=== PATIENT | female | born 1950 | race Caucasian/White ===

== ENCOUNTER 2017-02-19 17:08 | Emergency (ER) | payer MEDICARE, OTHER ==
[~2017-02-19] VITALS: Ht 167.6 cm; Wt 127.0 kg
[~2017-02-19 17:08] MED LIST: CRESTOR40 MG PO; CRESTOR5 MG PO; WARF-78 PO; WARF4TAB7 PO
[2017-02-19] MEDS ORDERED: fentaNYL PF 100 MCG/2 ML VIAL IV ONE (17:45)
[2017-02-19] MEDS ORDERED: ONDANSETRON PF 4 MG/2 ML VIAL. IV ONE (17:45)
--- NOTE | 2017-02-19 17:46 | ED.ADGEN ---
Past History Past Medical History: High Cholesterol, Other (BABATUNDE CAVAZOS DO) Past Surgical History: Hysterectomy, Other (BABATUNDE CAVAZOS DO) Alcohol Use: None Drug Use: None (BABATUNDE CAVAZOS DO) Adult General Chief Complaint Chief Complaint Right flank pain (BABATUNDE CAVAZOS DO) HPI HPI Patient is a 66-year-old female presents with right sided flank pain starting 4 hours prior to ED arrival. Pain is sharp, rated moderate to severe, nonmigratory , nonradiating and is rated moderate to severe. Pain is not approved or made worse with position change, palpation or movement. Patient denies nausea, vomiting, constipation, diarrhea, urinary frequency urgency or hematuria. No fever chills or sweats. No other acute symptoms or complaints. Prior surgical history includes lap band history 2007, colonoscopy in 2016 which showed polyps , and remote hysterectomy. (BABATUNDE CAVAZOS DO) Review of Systems Review of Systems ROS as per HPI. (BABATUNDE CAVAZOS DO) Current Medications Current Medications Current Medications Medications (Trade) Dose Ordered Sig/Augustin Start Time Stop Time Status Last Admin Dose Admin Ceftriaxone Sodium 1 gm/ Sodium Chloride 50 ml @ 100 mls/hr 1X ONCE 02/19/17 21:00 02/19/17 21:29 DC 02/19/17 21:00 100 MLS/HR Ceftriaxone Sodium (Rocephin) 1 gm STK-MED ONCE 02/19/17 21:08 02/19/17 21:09 DC Fentanyl Citrate (Fentanyl 2ml Vial) 50 mcg PRN Q15MIN PRN 02/19/17 19:15 02/19/17 22:19 DC 02/19/17 21:02 50 MCG Ketorolac Tromethamine (Toradol) 10 mg 1X ONCE 02/19/17 21:45 02/19/17 21:46 DC 02/19/17 22:08 10 MG Ondansetron HCl (Zofran) 4 mg 1X ONCE 02/19/17 17:45 02/19/17 17:46 DC 02/19/17 17:43 4 MG Oxycodone/ Acetaminophen (Percocet 5/325) 1 tab 1X ONCE 02/19/17 21:45 02/19/17 21:46 DC 02/19/17 20:08 1 TAB Sodium Chloride 50 ml @ As Directed STK-MED ONCE 02/19/17 21:08 02/19/17 21:09 DC Tamsulosin HCl (Flomax) 0.4 mg 1X ONCE 02/19/17 21:45 02/19/17 21:46 DC 02/19/17 22:08 0.4 MG ([facility]) Allergies Allergies Allergies Coded Allergies Type Severity Reaction Last Updated Verified Sulfa (Sulfonamide Antibiotics) Allergy Unknown 03/26/15 Yes Tetanus Vaccines & Toxoid Allergy Unknown 03/26/15 Yes latex Allergy Unknown 03/26/15 Yes (ROBBIE,SALAZAR Wanda ) Physical Exam Physical Exam Constitutional: Well developed, well nourished. HENT: Normocephalic, atraumatic, bilateral external ears normal, oropharynx moist, no oral exudates, nose normal. Eyes: PERRLA, EOMI, conjunctiva normal. Neck: Normal range of motion, no tenderness. Cardiovascular:Heart rate regular rhythm. Lungs & Thorax: Bilateral breath sounds clear to auscultation. Abdomen: Bowel sounds normal, soft, no tenderness, obesity compromising evaluation. Skin: Warm, dry, no erythema. Back: No tenderness, no CVA tenderness. Extremities: No tenderness. Neurologic: Alert and oriented X 3, normal motor function, normal sensory function, no focal deficits noted. Psychologic: Affect normal, judgement normal, mood normal. (BABATUNDE CAVAZOS DO) Current Patient Data Vital Signs Vital Signs Date Time Temp Pulse Resp B/P (MAP) Pulse Ox O2 Delivery O2 Flow Rate FiO2 02/19/17 21:02 20 98 Room Air 02/19/17 20:15 98.3 79 153/73 (99) ([facility]AR [facility]VALOS [facility]) Lab Results Laboratory Tests Test 02/19/17 17:35 02/19/17 18:40 White Blood Count 9.5 x10^3/uL (4.0-11.0) Red Blood Count 4.83 x10^6/uL (3.50-5.40) Hemoglobin 12.0 g/dL (12.0-15.5) Hematocrit 36.8 % (36.0-47.0) Mean Corpuscular Volume 76 fL (79-100) L Mean Corpuscular Hemoglobin 25 pg (25-35) Mean Corpuscular Hemoglobin Concent 33 g/dL (31-37) Red Cell Distribution Width 16.1 % (11.5-14.5) H Platelet Count 233 x10^3/uL (140-400) Neutrophils (%) (Auto) 83 % (31-73) H Lymphocytes (%) (Auto) 12 % (24-48) L Monocytes (%) (Auto) 3 % (0-9) Eosinophils (%) (Auto) 1 % (0-3) Basophils (%) (Auto) 1 % (0-3) Neutrophils # (Auto) 7.9 x10^3uL (1.8-7.7) H Lymphocytes # (Auto) 1.2 x10^3/uL (1.0-4.8) Monocytes # (Auto) 0.3 x10^3/uL (0.0-1.1) Eosinophils # (Auto) 0.1 x10^3/uL (0.0-0.7) Basophils # (Auto) 0.1 x10^3/uL (0.0-0.2) Sodium Level 142 mmol/L (136-145) Potassium Level 4.2 mmol/L (3.5-5.1) Chloride Level 106 mmol/L (98-107) Carbon Dioxide Level 26 mmol/L (21-32) Anion Gap 10 (6-14) Blood Urea Nitrogen 11 mg/dL (7-20) Creatinine 1.0 mg/dL (0.6-1.0) Estimated GFR (Cockcroft-Gault) 55.6 BUN/Creatinine Ratio 11 (6-20) Glucose Level 118 mg/dL (70-99) H Calcium Level 8.8 mg/dL (8.5-10.1) Total Bilirubin 0.5 mg/dL (0.2-1.0) Aspartate Amino Transferase (AST) 27 U/L (15-37) Alanine Aminotransferase (ALT) 19 U/L (14-59) Alkaline Phosphatase 167 U/L (46-116) H Total Protein 8.1 g/dL (6.4-8.2) Albumin 3.6 g/dL (3.4-5.0) Albumin/Globulin Ratio 0.8 (1.0-1.7) L Lipase 90 U/L (73-393) Urine Collection Type Unknown Urine Color Yellow Urine Clarity Hazy Urine pH 5.5 Urine Specific [place] 1.025 Urine Protein 30 mg/dl (NEG-TRACE) Urine Glucose (UA) Neg mg/dL (NEG) Urine Ketones (Stick) 15 mg/dL (NEG) Urine Blood Large (NEG) Urine Nitrite Pos (NEG) Urine Bilirubin Neg (NEG) Urine Urobilinogen Dipstick 1 mg/dL (0.2 mg/dL) Urine Leukocyte Esterase Neg (NEG) Urine RBC 11-20 /HPF (0-2) Urine WBC 1-4 /HPF (0-4) Urine Squamous Epithelial Cells Few /LPF Urine Bacteria Many /HPF (0-FEW) Urine Yeast Present /HPF (SALAZAR AVALOS DO) EKG EKG [] (BABATUNDE CAVAZOS DO) Radiology/Procedures Radiology/Procedures [] (BABATUNDE CAVAZOS DO) Course & Med Decision Making Course & Med Decision Making Pertinent Labs and Imaging studies reviewed. (See chart for details) [R flank pain, work up in progress. PCP follow up. ] (BABATUNDE CAVAZOS DO) Course & Med Decision Making I assumed care of this patient at time of sign out from Dr. Cavazos. Patient is resting more comfortably after receiving analgesia and antiemetics in the ED. We did initiate IV fluids as well, as patient was unable to pass urine, states she has been able to keep anything down since this symptoms began around 1:[address] of the abdomen and pelvis obtained without contrast, after urine was obtained and revealed a nitrate positive urinary tract infection with wbc's and many bacteria, yeast was also noted. Patient complaining of pain in the right flank and right lower quadrant, no significant tenderness on examination. CT abdomen and pelvis reveals a 4 mm obstructing stone with mild hydronephrosis at the right UVJ. Ceftriaxone initiated in the ED. patient has not experienced any nausea or vomiting, is resting comfortably at this time. I spoke with Dr. Naranjo of urology at the [facility], patient as stated has stable vital signs, no leukocytosis, no fever, and is tolerating orals without issue. He recommends management with outpatient , employing oral antibiotics and analgesia, and follow-up in his office. If patient spikes fevers, is unable tolerate oral medications, other complications were to arise, he recommends the patient proceed to [facility] emergency department for additional evaluation. I did discuss this with patient and at bedside. Patient is tolerating oral Flomax without issue, has received additional Toradol in the ED, and oral Percocet. She is tolerating medications without issue. We did discuss at length concerning symptoms that would prompt return to the emergency department for admission, at this time patient and are comfortable and agreeable with plan for a trial of outpatient management. Patient remained stable on the monitor, afebrile in the ED, ambulating without difficulty upon exiting the emergency department with her with plan as above, was given phone number to establish follow-up with urology. (SALAZAR AVALOS DO) Final Impression Final Impression [1. ] Problems: (BABATUNDE CAVAZOS DO) Dragon Disclaimer Dragon Disclaimer This electronic medical record was generated, in whole or in part, using a voice recognition dictation system. (BABATUNDE CAVAZOS DO) Departure: Impression: Primary Impression: Renal calculus, right Additional Impression: Urinary tract infection Disposition: 01 HOME, SELF-CARE Condition: IMPROVED Scripts Fluconazole (DIFLUCAN) 150 Mg Tablet 1 TAB PO ONCE, #1 TAB 1 Refill Prov: SALAZAR AVALOS DO 02/19/17 Ciprofloxacin Hcl (CIPRO) 500 Mg Tablet 1 TAB PO BID, #20 TAB Prov: SALAZAR AVALOS DO 02/19/17 Naproxen (NAPROXEN) 250 Mg Tablet 250 MG PO PRN BID Y for PAIN, #10 TAB Prov: SALAZAR AVALOS DO 02/19/17 Oxycodone Hcl/Acetaminophen (PERCOCET 5-325 MG TABLET) 1 Each Tablet 1 TAB PO QID Y for PAIN, #14 TAB Prov: SALAZAR AVALOS DO 02/19/17 Ondansetron Hcl (ZOFRAN) 4 Mg Tablet 4 MG PO PRN Q8HRS Y for NAUSEA, #12 Prov: SALAZAR AVALOS DO 02/19/17 Tamsulosin Hcl (FLOMAX) 0.4 Mg Cap.er.24h 0.4 MG PO DAILY, #4 CAP.SR Prov: SALAZAR AVALOS DO 02/19/17 BABATUNDE CAVAZOS DO Feb 19, 2017 17:45 SALAZAR AVALOS DO Feb 19, 2017 21:20
[2017-02-19 17:53] LABS: BASO # 0.1 x10^3/uL (0.0-0.2); BASO % 1 % (0-3); EOS # 0.1 x10^3/uL (0.0-0.7); EOS % 1 % (0-3); HEMATOCRIT 36.8 % (36.0-47.0); LYMPH # 1.2 x10^3/uL (1.0-4.8); LYMPH % 12 % (24-48); MEAN CORPUSCULAR HEMOGLOBIN 25 pg (25-35); MEAN CORPUSCULAR HGB CONC 33 g/dL (31-37); MEAN CORPUSCULAR VOLUME 76 fL (79-100); MONO # 0.3 x10^3/uL (0.0-1.1); MONO % 3 % (0-9); NEUT # 7.9 x10^3uL (1.8-7.7); NEUT % 83 % (31-73); PLATELET COUNT 233 x10^3/uL (140-400); RED BLOOD COUNT 4.83 x10^6/uL (3.50-5.40); RED CELL DISTRIBUTION WIDTH 16.1 % (11.5-14.5); WHITE BLOOD COUNT 9.5 x10^3/uL (4.0-11.0)
[2017-02-19 18:02] LABS: ALBUMIN 3.6 g/dL (3.4-5.0); ALBUMIN/GLOBULIN RATIO 0.8 (1.0-1.7); CALCIUM 8.8 mg/dL (8.5-10.1); GFR 55.6; TOTAL BILIRUBIN 0.5 mg/dL (0.2-1.0); TOTAL PROTEIN 8.1 g/dL (6.4-8.2)
[2017-02-19 18:03] LABS: POTASSIUM 4.2 mmol/L (3.5-5.1)
[2017-02-19] MEDS ORDERED: IV NORMAL SALINE 1,000ML 1,000 ML IV ONE (18:30)
[2017-02-19] MEDS ORDERED: fentaNYL PF 100 MCG/2 ML VIAL IV PRN (19:15)
[2017-02-19 19:17] LABS: CLARITY,URINE HAZY; COLOR,URINE YELLOW
[2017-02-19 19:18] LABS: BILIRUBIN,URINE NEG (NEG); GLUCOSE,URINE NEG (NEG); NITRITE,URINE POS (NEG); SQUAMOUS EPITHELIAL CELL,UR FEW /LPF; UROBILINOGEN,URINE 1 mg/dL (0.2 mg/dL)
[2017-02-19 19:19] LABS: BACTERIA,URINE MANY /HPF (0-FEW); YEAST,URINE PRESENT /HPF
[2017-02-19 20:15] VITALS: BP 153/73
--- NOTE | 2017-02-19 20:32 | RAD ---
PQRS STATEMENT: One or more of the following in the visualized dose reduction techniques were utilized for this study: 1. Automatic exposure control, 2. Adjustment of the mA and/or kV according to patient size, 3. Use of iterative reconstruction technique CT ABDOMEN/PELVIS Indication:rlq/rt hip/rt flank pain, hx hysterectomy Technique: Multiple contiguous axial images were obtained through the abdomen and pelvis. Coronal and sagittal reformations were created. Findings: There is an obstructive 4 mm calculus at the ureteropelvic junction on the right causing mild right hydronephrosis. There is also a nonobstructive calculus in the inferior pole measuring 6 mm. The left kidney demonstrates nonobstructing 2 mm calculus. There is also a cortical cyst on the left measures 3.8 cm and some smaller additional cortical cysts. The urinary bladder is within normal limits. The heart size is normal. The lung bases are clear.Evaluation of the abdominal viscera is limited in the absence of IV contrast. The gastric lap band is in place. There is a small hiatal hernia. The liver and spleen are normal in size. The gallbladder is nondistended. The pancreas, and adrenal glands are within normal limits. There is no abdominopelvic ascites. Abdominal aorta is normal in caliber. .The bowel loops are normal in caliber. The appendix is normal.No destructive osseus lesions are identified. There is dystrophic calcifications of the prostate. Impression: 4 mm obstructive calculus at the right ureteropelvic junction causing mild right hydronephrosis. Electronically signed by: Jm Ervin MD (02/19/2017 8:28 PM) [facility]
[2017-02-19] MEDS ORDERED: IV NORMAL SALINE 50ML 50 ML ONE (21:08)
[2017-02-19] MEDS ORDERED: cefTRIAXone SODIUM 1 GM VIAL IV ONE (21:08)
[2017-02-19] MEDS ORDERED: TAMSULOSIN 0.4 MG CAP.ER.24H. PO ONE (21:45)
[2017-02-19] MEDS ORDERED: oxyCODONE/APAP 5/325 1 TAB TABLET PO ONE (21:45)
[2017-02-19] MEDS ORDERED: KETOROLAC 15 MG/ML VIAL. IV ONE (21:45)
[2017-02-19] MEDS ORDERED: ONDA4TAB7 PO (22:02)
[2017-02-19] MEDS ORDERED: NAPR250T2 PO (22:02)
[2017-02-19] MEDS ORDERED: TAMS0.4C97 PO (22:02)
[2017-02-19] MEDS ORDERED: OXYC-323 PO (22:02)
[2017-02-19] MEDS ORDERED: CIPR500T94 PO (22:02)
[2017-02-19] MEDS ORDERED: FLUC150T PO (22:08)
== END 2017-02-19 22:17 | disposition home or self-care (01) ==
LOC: ER 17:08
DX: N20.0 Calculus of kidney (principal); N39.0 Urinary tract infection, site not specified; E78.00 Pure hypercholesterolemia, unspecified; Z90.710 Acquired absence of both cervix and uterus; Z88.2 Allergy status to sulfonamides; Z88.7 Allergy status to serum and vaccine; Z91.040 Latex allergy status
CPT/HCPCS: 36415; 74176; 80053; 81001; 83690; 85027; 87086; 96361; 96365; 96375; 96376; 99285; J0696; J1885; J2405; J3010; J7030

== ENCOUNTER → 2018-12-10 | Outpatient (CLI) | payer MEDICARE, OTHER ==
[~2018-12-10] MED LIST changes: +CIPR500T94 PO; +FLUC150T PO; +NAPR250T6 PO; +ONDA4TAB7 PO; +OXYC1TAB15 PO; +TAMS0.4C97 PO; +WARF4TAB64 PO; -WARF4TAB7 PO
== END | disposition home or self-care (01) ==
LOC: SPEC 12:33
PROVIDERS: ATTEND Family Medicine
DX: Z51.81 Encounter for therapeutic drug level monitoring (principal); J96.01 Acute respiratory failure with hypoxia; I26.99 Other pulmonary embolism without acute cor pulmonale; Z79.01 Long term (current) use of anticoagulants
CPT/HCPCS: 36415; 85610

== ENCOUNTER 2020-12-09 01:55 | Emergency (ER) | payer MEDICARE, OTHER ==
[~2020-12-09] VITALS: Ht 167.6 cm; Wt 100.0 kg
[~2020-12-09 01:55] MED LIST changes: +NAPR-699 PO; -NAPR250T6 PO; -WARF-78 PO; +WARF5TAB2 PO
[2020-12-09] MEDS ORDERED: KETOROLAC 15 MG/ML VIAL. IVP ONE (02:30)
[2020-12-09] MEDS ORDERED: IV NORMAL SALINE 1,000ML 1,000 ML IV ONE (02:30)
--- NOTE | 2020-12-09 02:32 | PHYS DOC ---
Past History Past Medical History: Constipation, High Cholesterol, Hypertension, Other Additional Past Medical Histor: PE Past Surgical History: Hysterectomy, Other Additional Past Surgical Histo: LAP BAND, BLADDER, CARCINOMA Alcohol Use: None Drug Use: None Adult General Chief Complaint Chief Complaint: FLANK PAIN HPI HPI Patient is a 70-year-old female who presents with complaints of 2 to left lower lumbar pain that began on Friday and has progressively gotten worse. She presents today because she is in so much discomfort that she cannot sleep. She reports her pain is in her left lower lumbar/sciatic region and does not radiate. She reports noes issues with urination or defecation since symptoms began and has not noticed any blood in her urine. She does report previous total abdominal hysterectomy, multiple pulmonary emboli for which she is on warfarin for in the past, and hyperlipidemia. She reports no previous surgical management of her past kidney stones. Denies nausea vomiting and diarrhea denies bloody urine denies bloody stools denies reduced appetite/p.o. intake. Review of Systems Review of Systems Fourteen body systems of review of systems have been reviewed. See HPI for pertinent positives and negative responses, other ortiz all other systems are negative, non-pertinent or non-contributory Current Medications Current Medications Current Medications Medications (Trade) Dose Ordered Sig/Augustin Start Time Stop Time Status Last Admin Dose Admin Ketorolac Tromethamine (Toradol 15mg Vial) 15 mg 1X ONCE 12/09/20 02:30 12/09/20 02:31 UNV Sodium Chloride 1,000 ml @ 75 mls/hr 1X ONCE 12/09/20 02:30 12/09/20 15:49 UNV Allergies Allergies Allergies Coded Allergies Type Severity Reaction Last Updated Verified Sulfa (Sulfonamide Antibiotics) Allergy Unknown 03/26/15 Yes Tetanus Vaccines and Toxoid Allergy Unknown 03/26/15 Yes latex Allergy Unknown 03/26/15 Yes Physical Exam Physical Exam Constitutional: Well developed, well nourished, no acute distress, non-toxic appearance. HENT: Normocephalic, atraumatic, bilateral external ears normal, oropharynx moist, no oral exudates, nose normal. Eyes: PERRLA, EOMI, conjunctiva normal, no discharge. Neck: Normal range of motion, no tenderness, supple, no stridor. Cardiovascular: Heart rate regular, sinus rhythm, no murmurs rubs or gallops Lungs & Thorax: Bilateral breath sounds clear to auscultation Abdomen: Bowel sounds normal, soft, no tenderness, no masses, no pulsatile masses. Nonsurgical abdomen, no peritoneal signs Skin: Warm, dry, no erythema, no rash. Back: No tenderness, no CVA tenderness but pointing to "deep" areas on bilateral flanks. Extremities: No tenderness, no cyanosis, no clubbing, ROM intact, no edema. Neurologic: Alert and oriented X 3, grossly normal motor & sensory function, no focal deficits noted. Psychologic: Affect normal, judgement normal, mood normal. Current Patient Data Vital Signs Vital Signs Date Time Temp Pulse Resp B/P (MAP) Pulse Ox O2 Delivery O2 Flow Rate FiO2 12/09/20 02:22 98.0 86 18 160/92 (114) 93 Room Air Lab Results Current Medications Medications (Trade) Dose Ordered Sig/Augustin Route PRN Reason Start Time Stop Time Status Last Admin Dose Admin Sodium Chloride 1,000 ml @ 75 mls/hr 1X ONCE IV 12/09/20 02:30 12/09/20 05:19 DC 12/09/20 02:46 Ketorolac Tromethamine (Toradol 15mg Vial) 15 mg 1X ONCE IVP 12/09/20 02:30 12/09/20 02:31 DC 12/09/20 02:46 EKG EKG [] Radiology/Procedures Radiology/Procedures CT abdomen and pelvis without contrast dated 12/09/2020. No comparison available. CLINICAL INDICATION: History of stones. Lower back pain. TECHNIQUE: Contiguous axial imaging of the abdomen pelvis performed without the administration of IV or oral contrast. One or more of the following individualized dose reduction techniques were utilized for this examination: 1. Automated exposure control 2. Adjustment of the mA and/or kV according to patient size 3. Use of iterative reconstruction technique. FINDINGS: Limited images of lung bases show irregular peripheral linear opacities, consistent with mild fibrosis. This is similar to slightly increased from prior study. Heart size is upper limits of normal. No pleural or pericardial effusion. There is a calcified granuloma in the right lower lobe. Solid abdominal viscera not well evaluated in the absence of contrast material. No apparent attenuation abnormality of the liver or spleen. Pancreas, adrenal glands are unremarkable. Gallbladder unremarkable. There is a 2 cm calcific stone at the midpole right kidney. 6 mm stone at the mid upper pole left kidney. No ureteral stone or hydronephrosis. There is a circumscribed low-density focus at the left kidney upper pole, most consistent with cyst. Unopacified GI tract normal in caliber and contour. No focal bowel wall thickening. The appendix is normal in caliber. No ascites or lymphadenopathy. Abdominal aorta normal in caliber. Evidence of prior lap band device placement, unchanged. Images of pelvis show nondistended urinary bladder. Uterus is surgically absent. No free fluid or pelvic lymphadenopathy. Bone windows show no acute findings. Multilevel spondylosis. IMPRESSION: 1. Bilateral nephrolithiasis, nonobstructive. 2. Interstitial changes at both lung bases are similar to slightly increased, possibly related to chronic interstitial lung disease. Correlate clinically. 3. Status post hysterectomy. Electronically signed by: Thomas Mejias MD (12/09/2020 2:58 AM) [facility] Heart Score C/O Chest Pain: No Risk Factors: Risk Factors: DM, Current or recent (<one month) smoker, HTN, HLP, family history of CAD, obesity. Risk Scores: Risk Factors: DM, Current or recent (<one month) smoker, HTN, HLP, family history of CAD, obesity. Course & Med Decision Making Course & Med Decision Making VSS. HPI, PE and ER workup concerning for most likely dx symptomatic kidney stones Patient responded to ER intervention I reviewed entirety of ER visit and findings, I discussed little indication for further workup or need for emergent urology consultation Joint-decision to DC home with continued supportive care given great symptomatic relief from ER intervention. Patient offered pain meds but reports pain is well controlled with OTC NSAIDs/tylenol Strict return precautions discussed, all questions and concerns addressed prior to departure Dragcristy Disclaimer Dragon Disclaimer This electronic medical record was generated, in whole or in part, using a voice recognition dictation system. Departure Departure: Impression: Primary Impression: Kidney stones Disposition: HOME / SELF CARE / HOMELESS Condition: IMPROVED Referrals: PIERRE GARY MD (PCP) Patient Instructions: Kidney Stones Additional Instructions: You were seen for flank pain and bloody urine. You most likely have a kidney stone that will hopefully pass. We are writing you a prescription for muscle spasm medication. You should strain your urine to look for the stone. You will need to follow up with your primary care physician for repeat evaluation in determination if outpatient neurology follow-up is indicated. Your CT scan showed a 2 cm calcific stone at the midpole right kidney. 6 mm stone at the mid upper pole left kidney. No ureteral stone or hydronephrosis. You should return to the ED if you develop worsening pain, fever, continued bloody urine, lightheadedness, shortness of breath, chest pain, or any other new or concerning symptoms. Scripts Cyclobenzaprine Hcl (CYCLOBENZAPRINE HCL) 5 Mg Tablet 1 TAB PO QHS for MUSCLE SPASM, #5 TAB Prov: CATALINA RONDON DO 12/09/20 CATALINA RONDON DO December 09, 2020 02:32
--- NOTE | 2020-12-09 03:01 | RAD ---
CT abdomen and pelvis without contrast dated 12/09/2020. No comparison available. CLINICAL INDICATION: History of stones. Lower back pain. TECHNIQUE: Contiguous axial imaging of the abdomen pelvis performed without the administration of IV or oral con trast. One or more of the following individualized dose reduction techniques were utilized for this examinat ion: 1. Automated exposure control 2. Adjustment of the mA and/or kV according to patient size 3. Use of iterative reconstruction technique. FINDINGS: Limited images of lung bases show irregular peripheral linear opacities, consistent with mild fibrosi s. This is similar to slightly increased from prior study. Heart size is upper limits of normal. No p leural or pericardial effusion. There is a calcified granuloma in the right lower lobe. Solid abdominal viscera not well evaluated in the absence of contrast material. No apparent attenuati on abnormality of the liver or spleen. Pancreas, adrenal glands are unremarkable. Gallbladder unremar kable. There is a 2 cm calcific stone at the midpole right kidney. 6 mm stone at the mid upper pole left kid salima. No ureteral stone or hydronephrosis. There is a circumscribed low-density focus at the left kidn ey upper pole, most consistent with cyst. Unopacified GI tract normal in caliber and contour. No focal bowel wall thickening. The appendix is n ormal in caliber. No ascites or lymphadenopathy. Abdominal aorta normal in caliber. Evidence of prior lap band device placement, unchanged. Images of pelvis show nondistended urinary bladder. Uterus is surgically absent. No free fluid or pel prabhakar lymphadenopathy. Bone windows show no acute findings. Multilevel spondylosis. IMPRESSION: 1. Bilateral nephrolithiasis, nonobstructive. 2. Interstitial changes at both lung bases are similar to slightly increased, possibly related to chr onic interstitial lung disease. Correlate clinically. 3. Status post hysterectomy. Electronically signed by: Thomas Mejias MD (12/09/2020 2:58 AM) [facility]
[2020-12-09 03:31] LABS: CALCIUM 8.8 mg/dL (8.5-10.1); CREATININE 0.9 mg/dL (0.6-1.0); GFR 62.1
[2020-12-09 03:37] LABS: ALBUMIN 3.4 g/dL (3.4-5.0); ALBUMIN/GLOBULIN RATIO 0.8 (1.0-1.7); TOTAL BILIRUBIN 0.6 mg/dL (0.2-1.0); TOTAL PROTEIN 7.9 g/dL (6.4-8.2)
[2020-12-09 04:06] LABS: BASO # 0.1 x10^3/uL (0.0-0.2); BASO % 1 % (0-3); EOS # 0.2 x10^3/uL (0.0-0.7); EOS % 3 % (0-3); HEMATOCRIT 40.6 % (36.0-47.0); HEMOGLOBIN 13.4 g/dL (12.0-15.5); LYMPH # 1.7 x10^3/uL (1.0-4.8); LYMPH % 24 % (24-48); MEAN CORPUSCULAR HEMOGLOBIN 27 pg (25-35); MEAN CORPUSCULAR HGB CONC 33 g/dL (31-37); MEAN CORPUSCULAR VOLUME 83 fL (79-100); MONO # 0.4 x10^3/uL (0.0-1.1); MONO % 5 % (0-9); NEUT # 4.6 x10^3uL (1.8-7.7); NEUT % 66 % (31-73); PLATELET COUNT 229 x10^3/uL (140-400); RED BLOOD COUNT 4.92 x10^6/uL (3.50-5.40); RED CELL DISTRIBUTION WIDTH 15.3 % (11.5-14.5); WHITE BLOOD COUNT 6.9 x10^3/uL (4.0-11.0)
[2020-12-09 04:12] VITALS: BP 186/86
[2020-12-09 04:42] LABS: BILIRUBIN,URINE NEG (NEG); CLARITY,URINE CLOUDY; COLOR,URINE YELLOW; GLUCOSE,URINE NEG (NEG); NITRITE,URINE NEG (NEG); UROBILINOGEN,URINE 0.2 mg/dL (0.2 mg/dL)
[2020-12-09 04:43] LABS: BACTERIA,URINE MOD /HPF (0-FEW); SQUAMOUS EPITHELIAL CELL,UR FEW /LPF; WBC,URINE >40 /HPF (0-4)
[2020-12-09] MEDS ORDERED: CYCL5TAB PO (04:57)
== END 2020-12-09 05:00 | disposition home or self-care (01) ==
LOC: ER 01:55
DX: N20.0 Calculus of kidney (principal); E78.00 Pure hypercholesterolemia, unspecified; I10 Essential (primary) hypertension; Z90.710 Acquired absence of both cervix and uterus; Z88.2 Allergy status to sulfonamides; Z91.040 Latex allergy status; Z88.7 Allergy status to serum and vaccine
CPT/HCPCS: 36415; 74176; 80053; 81001; 85025; 87086; 96361; 96374; 99284; J1885; J7030

== ENCOUNTER 2020-12-17 07:53 | Emergency (ER) | payer MEDICARE, OTHER ==
[~2020-12-17] VITALS: Ht 167.6 cm; Wt 137.3 kg
[2020-12-17 07:53] VITALS: BP 177/110
[~2020-12-17 07:53] MED LIST changes: +CYCL5TAB PO
--- NOTE | 2020-12-17 08:11 | PHYS DOC ---
Past History Past Medical History: Constipation, High Cholesterol, Hypertension, Other Additional Past Medical Histor: PE Past Surgical History: Hysterectomy, Other Additional Past Surgical Histo: LAP BAND, BLADDER, CARCINOMA Alcohol Use: None Drug Use: None General Adult EDM: Chief Complaint: HIP PAIN HPI: HPI: Patient is a 70-year-old female coming in for hip pain that is been present for over a week. Patient states she has been taking tramadol and a muscle relaxer without improvement. Patient is extremely abrasive initially refusing to talk because her mouth is dry despite speaking in full sentences and loudly. Patient says that she was doing a bowel prep for a colonoscopy and took Dulcolax last night and has been having diarrhea. States she was "too busy" with her diarrhea to drink any water prior to arrival. And is demanding water in the emergency department, initially was refusing to give any history until she got water. Vital signs are stable she is hypertensive without any signs of tachycardia or volume depletion. Says she had a CAT scan done prior for her hip pain, which was negative. Advised patient that she would likely need an MRI to further eval uate, and patient states "that is when I am here for". Advised patient that we cannot do an MRI in the emergency department patient states "will always go to [place] and, again advised patient that this is an outpatient indication for an MRI and she will need to talk to her primary care provider. Patient has not had any vomiting. Review of Systems: Review of Systems: All other systems within normal limits except for as noted in the HPI Allergies: Allergies: Allergies Coded Allergies Type Severity Reaction Last Updated Verified Sulfa (Sulfonamide Antibiotics) Allergy Unknown 03/26/15 Yes Tetanus Vaccines and Toxoid Allergy Unknown 03/26/15 Yes latex Allergy Unknown 03/26/15 Yes Physical Exam: PE: Constitutional: Well developed, well nourished, no acute distress, non-toxic appearance. [] HENT: Normocephalic, atraumatic, bilateral external ears normal, nose normal. [] Eyes: PERRLA, conjunctiva normal, no discharge. [] Neck: No rigidity, supple, no stridor. [] Cardiovascular: Regular rate and rhythm, brisk cap refill [] Lungs & Thorax: Non labored symmetric respirations, no tachypnea or respiratory distress [] Abdomen: Soft, nondistended. Skin: Warm, dry, no erythema, no rash. [] Back: Unremarkable Extremities: No deformities, range of motion grossly intact, no lower extremity edema. Left hip pain with crossing midline. Tension and tenderness over piriformis. No joint restriction no pain with passive range of motion. [] Neurologic: Alert and oriented X 3, no focal deficits noted. [] Psychologic: Affect normal, judgement normal, mood normal. [] EKG: EKG: [] Radiology/Procedures: Radiology/Procedures: [] Heart Score: C/O Chest Pain: No Risk Factors: Risk Factors: DM, Current or recent (<one month) smoker, HTN, HLP, family history of CAD, obesity. Risk Scores: Score 0 - 3: 2.5% MACE over next 6 weeks - Discharge Home Score 4 - 6: 20.3% MACE over next 6 weeks - Admit for Clinical Observation Score 7 - 10: 72.7% MACE over next 6 weeks - Early Invasive Strategies Course & Med Decision Making: Course & Med Decision Making Pertinent Labs and Imaging studies reviewed. (See chart for details) Discussed stretching and exercising with patient. Since no new injuries and no new concerning complaints, will have patient follow-up with her primary care provider. In chart review she had nonobstructing kidney stones. But no complaints of CVA pain or hematuria today. [] Duran Disclaimer: Duran Disclaimer: This electronic medical record was generated, in whole or in part, using a voice recognition dictation system. Departure Departure: Impression: Primary Impression: Spasm of left piriformis muscle Disposition: HOME / SELF CARE / HOMELESS Condition: STABLE Referrals: PIERRE GARY MD (PCP) Patient Instructions: Piriformis Syndrome with [facility] MANUELITO SARGENT MD December 17, 2020 08:10
[2020-12-17] MEDS ORDERED: HYDROcodone/APAP 5/325MG 1 TAB TABLET PO ONE (08:15)
== END 2020-12-17 08:28 | disposition home or self-care (01) ==
LOC: ER 07:53
DX: M62.838 Other muscle spasm (principal); M25.552 Pain in left hip; E78.00 Pure hypercholesterolemia, unspecified; I10 Essential (primary) hypertension; Z88.2 Allergy status to sulfonamides; Z88.7 Allergy status to serum and vaccine; Z91.040 Latex allergy status
CPT/HCPCS: 99283

== ENCOUNTER 2021-01-25 04:44 | Emergency (ER) | payer MEDICARE, OTHER ==
[~2021-01-25] VITALS: Ht 167.6 cm; Wt 134.1 kg
--- NOTE | 2021-01-25 04:54 | PHYS DOC ---
Past History Past Medical History: Constipation, High Cholesterol, Hypertension, Other Additional Past Medical Histor: PE Past Surgical History: Hysterectomy, Other Additional Past Surgical Histo: LAP BAND, BLADDER, CARCINOMA Alcohol Use: None Drug Use: None Adult General HPI HPI Very pleasant 70-year-old female with history of hypertension, hyperlipidemia, DVT, PE, on chronic anticoagulation presented to the emergency department following a ground-level mechanical fall around 1:30 yesterday p.m. Patient states that she was carrying grocery home. She does have 1 step to enter the house. She tripped and stumbled and fell onto her left side. She essentially landed on her both knees. She sustained injury to her bilateral knees right worse than the left, left elbow, left hip, left second toe. Pain 0 out of 10 at rest. Pain 7 out of 10 with movement. She does have a discoloration at the base of the second toe. She denies any loss of consciousness. She was ambulatory following the fall. She is not having much pain now at the left elbow and left hip. She does have a superficial abrasion left elbow. She had bled but now hemostasis obtained. She denies any headache, lightheadedness, dizziness, chest pain, shortness of breath, dizziness, headache, visual changes. She does have history of hearing loss. Patient reports taking ibuprofen 2 hours prior to arrival to the ER. Review of Systems Review of Systems All other systems were reviewed and found to be within normal limits, except as documented in this note. Allergies Allergies Allergies Coded Allergies Type Severity Reaction Last Updated Verified Sulfa (Sulfonamide Antibiotics) Allergy Unknown 03/26/15 Yes Tetanus Vaccines and Toxoid Allergy Unknown 03/26/15 Yes latex Allergy Unknown 03/26/15 Yes Physical Exam Physical Exam Constitutional: Well developed, well nourished, no acute distress, non-toxic appearance. [] HENT: Normocephalic, atraumatic, bilateral external ears normal, oropharynx moist, no oral exudates, nose normal. [] Eyes: PERRLA, EOMI, conjunctiva normal, no discharge. [] Neck: Normal range of motion, no tenderness, supple, no stridor. [] Cardiovascular:Heart rate regular rhythm, no murmur [] Lungs & Thorax: Bilateral breath sounds clear to auscultation [] Abdomen: Bowel sounds normal, soft, no tenderness, no masses, no pulsatile masses. [] Skin: Warm, dry, no erythema, no rash. [] Back: No tenderness, no CVA tenderness. [] Extremities: There is a area of discoloration distal metatarsal head and MP j oints second toe. She does have tenderness upon palpation over the right knee medial and lateral joint line. Minimal tenderness on palpation over the left knee medial and lateral joint line. Minimal tenderness if any at all at the left hip. Nontender left elbow with flexion and extension. Patient does have a superficial abrasion left elbow area which has scabbed over Neurologic: Alert and oriented X 3, normal motor function, normal sensory function, no focal deficits noted. [] Psychologic: Affect normal, judgement normal, mood normal. [] EKG EKG [] Radiology/Procedures Radiology/Procedures [] Heart Score C/O Chest Pain: N/A Risk Factors: Risk Factors: DM, Current or recent (<one month) smoker, HTN, HLP, family histo ry of CAD, obesity. Risk Scores: Risk Factors: DM, Current or recent (<one month) smoker, HTN, HLP, family history of CAD, obesity. Course & Med Decision Making Course & Med Decision Making The x-ray of the both knees reviewed. No acute fracture. However degenerative changes noted bilateral knees. Ankle x-ray unremarkable. However, patient does have nondisplaced radiolucency suspecting nondisplaced fracture proximal aspect of the proximal second phalanx left toe. Final interpretation from radiology pending. Bilateral knees 3 views each: Reason for examination: Fell with knee pain and left second toe pain. No acute fracture or dislocation is seen in either knee. The bone density is normal and no abnormal periosteal reaction is seen. Joint spaces however show some mild degenerative changes. There is narrowing of the femoral patellar spaces bilaterally. There also appears be some narrowing of the medial joint compartment on the right and left. No joint effusions are evident. IMPRESSION: Mild degenerative changes. No acute bony abnormality evident. Left second toe 3 views: There appears to be a fracture at the base of the proximal phalanx of the second toe with intra-articular extension. This shows minimal displacement. There is also linear lucency seen through the cortex medially in the base of the proximal phalanx of the great toe. This does not appear to extend through the bone and may represent a vascular groove. No other sites of fracture or dislocation is seen. Joint spaces are maintained. IMPRESSION: Fracture at the base of the proximal phalanx of the second toe with intra- articular extension. Electronically signed by: Lynn Fermin MD (01/25/2021 6:24 AM) [facility] [place] Disclaimer Duran Disclaimer This electronic medical record was generated, in whole or in part, using a voice recognition dictation system. Departure Departure: Impression: Primary Impression: Fall from ground level Additional Impressions: Left knee pain Right knee pain Sprain of second toe, left Left elbow pain Superficial abrasion Disposition: HOME / SELF CARE / HOMELESS Condition: STABLE Referrals: PIERRE GARY MD (PCP) Additional Instructions: You have nondisplaced second toe fracture. Continue paige taping for 1 to 2 weeks. You will need to see an orthopedic surgeon through your primary care provider for follow-up. May take ibuprofen or Tylenol as needed for pain. Problem Qualifiers BRANDI LIRIANO MD Jan 25, 2021 04:54
[2021-01-25 05:01] VITALS: BP 131/88
[2021-01-25] MEDS ORDERED: MORPHINE SULFATE 4 MG/ML DISP.SYRIN. ONE (05:20)
[2021-01-25] MEDS ORDERED: ONDANSETRON PF 4 MG/2 ML VIAL. ONE (05:20)
--- NOTE | 2021-01-25 06:26 | RAD ---
Bilateral knees 3 views each: Reason for examination: Fell with knee pain and left second toe pain. No acute fracture or dislocation is seen in either knee. The bone density is normal and no abnormal p eriosteal reaction is seen. Joint spaces however show some mild degenerative changes. There is narrow ing of the femoral patellar spaces bilaterally. There also appears be some narrowing of the medial mihaela int compartment on the right and left. No joint effusions are evident. IMPRESSION: Mild degenerative changes. No acute bony abnormality evident. Left second toe 3 views: There appears to be a fracture at the base of the proximal phalanx of the second toe with intra-artic ular extension. This shows minimal displacement. There is also linear lucency seen through the cortex medially in the base of the proximal phalanx of the great toe. This does not appear to extend throug h the bone and may represent a vascular groove. No other sites of fracture or dislocation is seen. Mihaela int spaces are maintained. IMPRESSION: Fracture at the base of the proximal phalanx of the second toe with intra-articular extension. Electronically signed by: Lynn Fermin MD (01/25/2021 6:24 AM) [facility]
== END 2021-01-25 06:10 | disposition home or self-care (01) ==
LOC: ER 04:44
DX: S62.611A Displaced fracture of proximal phalanx of left index finger, initial encounter for closed fracture (principal); S93.505A Unspecified sprain of left lesser toe(s), initial encounter; M25.562 Pain in left knee; M25.561 Pain in right knee; S50.312A Abrasion of left elbow, initial encounter; E78.5 Hyperlipidemia, unspecified; I10 Essential (primary) hypertension; Z90.710 Acquired absence of both cervix and uterus; Z88.2 Allergy status to sulfonamides; Z91.040 Latex allergy status; W18.00XA Striking against unspecified object with subsequent fall, initial encounter; Y93.89 Activity, other specified; Y92.89 Other specified places as the place of occurrence of the external cause; Y99.8 Other external cause status
CPT/HCPCS: 73562; 73660; 99284-25